=== PATIENT | female | born 1935 | race Caucasian/White ===

== ENCOUNTER 2016-12-21 22:36 | Inpatient (IN) | payer MEDICARE, BC ==
[~2016-12-21 22:36] MED LIST: Heparin 2 UNITS/ML IVPREMIX* 2,000 ML IV ONE; Iohexol 350 (CONTRAST) 200 ML MDV IV ONE; Lidocaine 1% INJ* 10 MG/ML 30 ML SDV ONE; Midazolam* 1 MG/ML 5 ML VIAL (5 MG) ONE; fentaNYL* 50 MCG/ML 2 ML VIAL (100 MCG VIAL) ONE; nitroGLYCERIN DRIP* 250 ML ONE
[2016-12-21] MEDS ORDERED: Heparin DRIP 25,000 UNITS(*) 25,000 UNITS/500 ML BAG ONE (22:44)
[2016-12-21] MEDS ORDERED: VERAPAMIL 2.5 MG/ML 4 ML VIAL ONE (23:04)
[2016-12-21] MEDS ORDERED: Heparin(*) 1000 UNIT/ML 10 ML VIAL CATH LAB IV ONE (23:05)
[2016-12-21 23:10] LABS: Hematocrit 42 % (35-47); Hemoglobin 13.8 g/dl (12.0-16.0); Mean Corpuscular HGB Conc 33 g/dl (31-36); Mean Corpuscular Hemoglobin 32 pg (27-31); Mean Corpuscular Volume 97 fL (80-97); Mean Platelet Volume 9 um3 (7.4-10.4); Red Blood Count 4.33 10^6/ul (4.0-5.4); Red Cell Distribution Width 14 % (10.5-15)
[2016-12-21] MEDS ORDERED: Iodixanol* (CONTRAST) 320 MG/ML 100 ML SDV ONE (23:11)
[2016-12-21 23:22] LABS: Albumin 3.7 g/dL (3.2-5.2); BUN/Creatinine Ratio 25.7 (8-20); Calcium 8.7 mg/dL (8.6-10.3); EGFR Non-African American 50.6 (>60); Globulin 2.6 g/dL (2-4); Potassium 3.9 mmol/L (3.5-5.0); Total Bilirubin 0.6 mg/dL (0.2-1.0); Total Protein 6.3 g/dL (6.4-8.9)
[2016-12-21 23:30] LABS: Troponin I 4.97 ng/mL (<0.04)
[2016-12-22] MEDS ORDERED: NS 0.9% 1000 ML* 1,000 ML IV SCH (00:15)
[2016-12-22] MEDS ORDERED: Metoprolol Tartrate TAB* 25 MG PO SCH (01:00)
--- NOTE | 2016-12-22 01:47 | ED ---
Blas De Leon Rebecca, scribed for Zack Licona MD on 12/21/16 at 2317 . HPI Chest Pain - HPI Summary HPI Summary: Pt is a 81 y/o F BIBA from [place] who presents to ED c/o CP. Pain began today at approximately 1900, initially as pressure then changed into pain. Pain is discrete to the midsternal region without radiation anywhere including the arm, jaw and face. Currently, pain is not present, ranked it as 0/10 though she had a slight "twinge while en route to [facility] ED. No prior similar episodes. Reports she has intermittently experienced palpitations in the past, but no incidences of chest pain previously. Had a colonoscopy this morning. FHx CAD (father pacemaker). NKDA. - History of Current Complaint Chief Complaint: EDChestPainROMI Hx Obtained From: Patient Onset/Duration: Started Hours Ago, Resolved Time of Onset: 19:00 Timing: Intermittent Current Severity: None Pain Intensity: 0 Pain Scale Used: 0-10 Numeric Chest Pain Location: Mid Sternal Character: Pressure/Squeezing Aggravating Factor(s): Nothing Alleviating Factor(s): Nothing Associated Signs and Symptoms: Negative: Fever - Allergy/Home Medications Allergies/Adverse Reactions: Allergies Allergy/AdvReac Type Severity Reaction Status Date / Time No Known Allergies Allergy Verified 12/21/16 23:07 PMH/Surg Hx/FS Hx/Imm Hx Endocrine/Hematology History: Denies: Hx Diabetes Cardiovascular History: Reports: Hx Hypercholesterolemia Denies: Hx Hypertension Musculoskeletal History: Reports: Other Musculoskeletal History - Osteoarthritis (R hand) Infectious Disease History: No Infectious Disease History: Denies: Traveled Outside the [place] in Last 30 Days - Family History Known Family History: Positive: Cardiac Disease - father - pacemaker - Social History Lives: With Family Smoking Status (MU): Never Smoked Tobacco Review of Systems Negative: Fever Positive: Chest Pain All Other Systems Reviewed And Are Negative: Yes Physical Exam - Summary Physical Exam Summary: General: well-appearing, no pain distress Skin: warm, color reflects adequate perfusion, dry Head: normal Eyes: EOMI, MATTHEW ENT: normal Neck: supple, nontender Respiratory: CTA, breath sounds present Cardiovascular: RRR Abdomen: soft, nontender Bowel: present Musculoskeletal: normal, strength/ROM intact Neurological: normal, sensory/motor intact, A&O x3 Psychological: affect/mood appropriate Triage Information Reviewed: Yes Vital Signs On Initial Exam: Initial Vitals Temp Pulse Resp BP Pulse Ox 98 F 72 16 120/72 98 12/21/16 23:01 12/21/16 23:01 12/21/16 23:01 12/21/16 23:01 12/21/16 23:01 Vital Signs Reviewed: Yes Diagnostics - Vital Signs Vital Signs Temp Pulse Resp BP Pulse Ox 12/21/16 23:01 98 F 72 16 120/72 98 - Laboratory Lab Results: Lab Results 12/21/16 Range/Units 22:50 WBC 13.0 H (3.5-10.8) 10^3/ul RBC 4.33 (4.0-5.4) 10^6/ul Hgb 13.8 (12.0-16.0) g/dl Hct 42 (35-47) % MCV 97 (80-97) fL MCH 32 H (27-31) pg MCHC 33 (31-36) g/dl RDW 14 (10.5-15) % Plt Count 205 (150-450) 10^3/ul MPV 9 (7.4-10.4) um3 Neut % (Auto) 74.3 (38-83) % Lymph % (Auto) 17.5 L (25-47) % Williams % (Auto) 7.1 (1-9) % Eos % (Auto) 0.6 (0-6) % Baso % (Auto) 0.5 (0-2) % Absolute Neuts (auto) 9.7 H (1.5-7.7) 10^3/ul Absolute Lymphs (auto) 2.3 (1.0-4.8) 10^3/ul Absolute Monos (auto) 0.9 H (0-0.8) 10^3/ul Absolute Eos (auto) 0.1 (0-0.6) 10^3/ul Absolute Basos (auto) 0.1 (0-0.2) 10^3/ul Absolute Nucleated RBC 0.01 10^3/ul Nucleated RBC % 0.1 Result Diagrams: 12/21/16 22:50 12/21/16 22:50 Lab Statement: Any lab studies that have been ordered have been reviewed, and results considered in the medical decision making process. - EKG 2237 Cardiac Rate: NL - 74 bpm EKG Rhythm: Sinus Rhythm ST Segment: Non-Specific - COncave up ST elevation in the lateral leads Ectopy: None Chest Pain Course/Dx - Course Course Of Treatment: DIAZ SAW PATIENT IN ED AND TOOK HER TO THE [facility]. CRITICAL CARE TIME LESS THAN 30 MINUTES. - Diagnoses Provider Diagnoses: STEMI (ST elevation myocardial infarction) During the Visit The Following Alert/Code Occurred: STEMI - Caled at 2140, prior to pt's arrival - Provider Notifications Discussed Care Of Patient With: Eusebio Jarvis Time Discussed With Above Provider: 23:05 Instructed by Provider To: Other - Discussed pt prior to her arrival. He was in the ED upon her arrival an diwll transport her to the garage laborer. Discharge - Discharge Plan Condition: Good Disposition: ADMITTED TO [facility] documentation as recorded by the Blas pineda Rebecca accurately reflects the service I personally performed and the decisions made by me, Zack Licona MD.
[2016-12-22] MEDS: Acetaminophen TAB* 325 MG PO PRN ×2 (03:29→12:46)
[2016-12-22] MEDS ORDERED: Ondansetron INJ* 2 MG/ML VIAL IV PRN (06:14)
[2016-12-22] MEDS ORDERED: oxyCODONE/Acetamin 5/325 MG* TAB PO PRN (06:14)
[2016-12-22 06:22] LABS: BUN/Creatinine Ratio 28.6 (8-20); Calcium 8.3 mg/dL (8.6-10.3); EGFR Non-African American 72.3 (>60); Potassium 3.8 mmol/L (3.5-5.0)
[2016-12-22 07:17] LABS: Troponin I 2.94 ng/mL (<0.04)
[2016-12-22] MEDS ORDERED: Perflutren Lipid Microsphere* 3 ML VIAL ONE (08:48)
[2016-12-22] MEDS: Aspirin Low Dose CHEW TAB* 81 MG PO SCH (09:25)
[2016-12-22] MEDS: Enoxaparin(*) 40 MG/0.4 ML SYR SUBCUT SCH (09:25)
--- NOTE | 2016-12-22 10:14 | ECHO ---
Patient: FRANSISCO OHARA [facility] Rec#: [id number] : 1935 Date: 12/22/2016 Age: 81y Height: 167.6 cm / 66.0 in Weight: 56.3 kg / 124.1 lbs Sex: F BSA: 1.6 Room#: ICU 3 Admit Date#: 12/22/2016 Type: Inpatient Referring: Eusebio Jarvis MD Reading: Giovanni Nelson DO Dag Coater: Brooklyn Ko RN RDCS Transthoracic Echocardiogram Indication: Takotsubo Cardiomyopathy BP: 106/57 HR: 61 Rhythm: NSR Findings History: HLD, anxiety Technical Comments: The study quality is fair. Completed at 0940. Left Ventricle: The left ventricular chamber size is normal. Mild concentric left ventricular hypertrophy is observed.with a basal septal knuckle There is moderate to severely decreased left ventricular systolic function. There is akinesis of all mid and apical segments. There is hyperkinetic basal segments. Definity was used to better visualize the apex and there was no thrombus visualized. The estimated ejection fraction is 30-35%. There is no consistent Doppler evidence of clinically significant diastolic dysfunction. Left Atrium: The left atrium is slightly dilated. Right Ventricle: The right ventricular chamber size and systolic function are within normal limits. Right Atrium: The right atrial cavity size is normal. Aortic Valve: The aortic valve is trileaflet. The aortic valve leaflets are mildly thickened. There is mild aortic regurgitation. There is no evidence of aortic stenosis. Mitral Valve: The mitral valve leaflets are mildly thickened. There is mild mitral regurgitation. that is non-holosystolic There is no evidence of mitral stenosis. Tricuspid Valve: The tricuspid valve leaflets are normal. There is moderate tricuspid regurgitation. There is evidence of mild to moderate pulmonary hypertension. There is no tricuspid stenosis. Pulmonic Valve: The pulmonic valve structure is not well visualized. There is a trace pulmonic regurgitation. There is no pulmonic stenosis. Pericardium: There is no significant pericardial effusion. Aorta: There is no dilatation of the ascending aorta. The aortic arch is not well visualized. There is no dilation of the aortic root. Pulmonary Artery: The main pulmonary artery is not well visualized. Venous: The inferior vena cava is dilated. There is less than 50% respiratory change in the inferior vena cava dimension. Contrast: Definity was used to optimize study. A total of 3 ml of diluted Definity was administered IV. Conclusions The left ventricular chamber size is normal. Mild concentric left ventricular hypertrophy is observed.with a basal septal knuckle There is moderate to severely decreased left ventricular systolic function LVEF 30% There is akinesis of all mid and apical segments with hyperkinetic basal segments most likely secondary to takotsubo cardiomyopathy (less likely multivessel CAD). There is no hemodynamic significant LVOT gradient or mitral regurgitation. With the use of definity, there is no apical thrombus visualized. The left atrium is slightly dilated. The right ventricular chamber size and systolic function are within normal limits. There is moderate tricuspid regurgitation. There is evidence of mild to moderate pulmonary hypertension. No prior studies available for comparison at time of interpretation. Measurements Name Value Normal Range RVDdMajor (2D) 2.7 cm (2.2 - 4.4) RAd ISD 4CH 4.9 cm (3.4 - 4.9) RA (A4C)W 3.7 cm (2.9 - 4.6) IVSd (2D) 1.1 cm (0.6 - 1) LVPWd (2D) 1.1 cm (0.6 - 1) LVIDd (2D) 3.9 cm (3.6 - 5.4) LVIDs (2D) 2.3 cm - LV FS (2D) 41 % (25 - 45) Aortic Annulus 2 cm (1.4 - 2.6) Ao root diameter (2D) 2.9 cm (2.1 - 3.5) Ascending Ao 2.8 cm (2.1 - 3.4) LA dimension (AP) 2D 3.2 cm (2.3 - 3.8) LAd ISD 4CH 4.8 cm (2.9 - 5.3) LA ISD 4CH W 4.2 cm (2.5 - 4.5) Name Value Normal Range LA ESV SP 4CH (A/L) 60.9 ml - LA ESV SP 2CH (A/L) 49.2 ml - LA ESV BP (A/L) 55.8 ml - LA ESV BP (A/L) index 34.3 ml/m2 - LA ESV SP 4CH (MOD) 57 ml - LA ESV SP 2CH (MOD) 46.4 ml - Name Value Normal Range MV E-wave Vmax 0.77 m/sec - MV deceleration time 163 msec - MV A-wave Vmax 0.77 m/sec - MV E:A ratio 1 ratio - LV septal e' Vmax 0.07 m/sec - LV lateral e' Vmax 0.08 m/sec - LV E:e' septal ratio 11 ratio - LV E:e' lateral ratio 9.6 ratio - Name Value Normal Range AV Vmax 0.98 m/sec - AV VTI 19.9 cm - AV peak gradient 3.8 mmHg - AV mean gradient 2.1 mmHg - LVOT Vmax 0.82 m/sec - LVOT VTI 19.5 cm - LVOT peak gradient 2.7 mmHg - LVOT mean gradient 1.8 mmHg - AR PHT 409 msec - Name Value Normal Range TR Vmax 2.9 m/sec - TR peak gradient 34 mmHg - RAP 15 mmHg - RVSP 49 mmHg - IVC diameter 2.4 cm - Name Value Normal Range PV Vmax 0.5 m/sec -
[2016-12-22] MEDS: Metoprolol Tartrate TAB* 25 MG PO SCH (20:14)
[2016-12-23 06:20] LABS: BUN/Creatinine Ratio 16.3 (8-20); Calcium 8.4 mg/dL (8.6-10.3); EGFR Non-African American 69.2 (>60); Potassium 4.1 mmol/L (3.5-5.0)
[2016-12-23 06:44] LABS: Free T4 0.91 ng/dL (0.61-1.12)
[2016-12-23 06:48] LABS: TSH (Thyroid Stimulating Horm) 3.11 mcIU/mL (0.34-5.60)
[2016-12-23] MEDS: Enoxaparin(*) 40 MG/0.4 ML SYR SUBCUT SCH (08:27)
[2016-12-23] MEDS: Metoprolol Tartrate TAB* 25 MG PO SCH ×2 (08:27→22:04)
[2016-12-23] MEDS: Aspirin Low Dose CHEW TAB* 81 MG PO SCH (08:27)
--- NOTE | 2016-12-23 11:59 | HP ---
CC: Dr. Yu; Dr. Jarvis HISTORY AND PHYSICAL: DATE OF ADMISSION: 12/22/16 PRIMARY: Dr. Yu. HISTORY OF PRESENT ILLNESS: A 81-year-old woman with inferolateral ST-elevation infarct transferred from [place] for further evaluation and management. She has no previous cardiac history. On 12/21/16, she had elective colonoscopy without any polypect lindsay or biopsy. She went home, later that afternoon developed precordial chest discomfort. She pres ented to [place] ER where she had inferolateral J point and ST-segment elevation, her vitals were u nremarkable. Her CBC was notable only for macrocytosis with an MCV of 95.7. BMP included creatinin e of 1.2, she had been fasting for the colonoscopy. Random glucose was 175, BUN 29. She had normal electrolytes. Her CPK was elevated at 411, her troponin was elevated at 1.66, MB elevated at 19.3. She received aspirin, nitroglycerin, and bolus of heparin, IV Lopressor, and was transferred here a fter some delay in obtaining transport. When she arrived in the ER, her chest pain had just resolve d en route, but she still had inferolateral ST elevation and she was brought to the cathode ray tube assembler. She has no history of heart failure symptoms, she is physically active, she has not had heart failur e symptoms, palpitations, or syncope. Per family, she has had some difficulty with memory recently, has not been evaluated by Neurology. She is a retired realtor, she is intelligent, is fairly succe ssful at hiding her memory issues. She also has a benign tremor involving the right hand for which she has been on propranolol 20 mg t.i.d. PAST MEDICAL HISTORY: Tremor, hyperlipidemia, osteoarthritis, remote colectomy with colonoscopy the day of admission which per report showed no abnormality but was limited. PREHOSPITAL MEDICATIONS: 1. Propranolol 20 mg t.i.d. 2. Duloxetine 30 mg daily. SOCIAL HISTORY: She is . She is a retired realtor, she is a nonsmoker. REVIEW OF SYSTEMS: General: No weight loss, no fever. She is very active, she often power walks w ith her without difficulty. Neuro: No history of TIA of CVA, but has been experiencing mem ory difficulty. Pulmonary: No history of hemoptysis or pneumonia. Endocrine: No history of diabe miles. Heme: No history of malignancy or anemia. Circulatory: No claudication. Remainder all nega tive. PHYSICAL EXAMINATION GENERAL: She was comfortable, pain free, articulate. VITAL SIGNS: At arrival here, BP 120/72, pulse 72. HEENT: No xanthelasma, scleral injection, or jaundice. EOMs grossly normal. Cranial nerves grossly intact. NECK: No JVP and carotids normal. No bruits. LUNGS: Her lungs were clear to percussion and auscultation. CARDIAC: Chest wall not tender. RV and apex not palpable. ABDOMEN: Soft, nontender. No bruits. Aorta not palpable. Liver not palpable. No femoral bruits. Normal femoral pulses. EXTREMITIES: Radial and pedal pulses palpable. No cyanosis, clubbing, or edema. SKIN: Warm and perfused. DIAGNOSTIC STUDIES/LAB DATA: White count here 13,000 with normal MCV of 97. BUN 27, creatinine 1. 05. Random blood sugar 186. Lactic acid elevated at 2.4. Troponin was high at 1.97. BNP elevated at 152. Her LDL was 137. Repeat creatinine, on 12/22/16, was 0.77 after hydration. Thyroid studie s pending. EKG, on 12/21/16, at 2237 hours showed inferolateral J point and ST elevation with poor R wave progr ession consistent with inferolateral infarct, although early repolarization is within the differenti al. We had no old EKGs. IMPRESSION AND PLAN: 1. Probable inferolateral ST-elevation infarct based on EKG, abnormal troponin, and history. She u nderwent emergent catheterization. 2. Hyperlipidemia. She will be started on a statin. 3. History of cognitive difficulty. At [place], she had macrocytosis. Thyroid and B12 studies ar e pending. This will be evaluated as an outpatient. 4. Apparently, essential tremor, on propranolol. [id number]/[facility] #: [id number]
[2016-12-23] MEDS: Atorvastatin* 80 MG TAB PO SCH (17:03)
[2016-12-23] MEDS: Enoxaparin(*) 60 MG/0.6 ML SYR SUBCUT SCH (22:04)
[2016-12-24] MEDS: Enoxaparin(*) 60 MG/0.6 ML SYR SUBCUT SCH ×2 (08:09→20:40)
[2016-12-24] MEDS: Aspirin Low Dose CHEW TAB* 81 MG PO SCH (08:09)
[2016-12-24] MEDS: Metoprolol Tartrate TAB* 25 MG PO SCH ×2 (08:09→20:40)
[2016-12-24] MEDS: Lisinopril TAB* 5 MG PO SCH (11:56)
[2016-12-24] MEDS: Atorvastatin* 80 MG TAB PO SCH (16:53)
[2016-12-25 07:38] VITALS: BP 102/57
[2016-12-25] MEDS: Lisinopril TAB* 5 MG PO SCH (08:22)
[2016-12-25] MEDS: Aspirin Low Dose CHEW TAB* 81 MG PO SCH (08:22)
[2016-12-25] MEDS: Enoxaparin(*) 60 MG/0.6 ML SYR SUBCUT SCH (08:22)
[2016-12-25] MEDS ORDERED: Metoprolol Succinate XL TAB* 50 MG PO SCH (09:00)
--- NOTE | 2016-12-26 04:51 | DS ---
CC: Dr. Yu * DISCHARGE SUMMARY: DATE OF ADMISSION: 12/21/16 DATE OF DISCHARGE: 12/25/16 PRIMARY CARE PHYSICIAN: Dr. Yu. DISCHARGE DIAGNOSES: 1. Takotsubo syndrome. 2. Hypertension. 3. Hyperlipidemia. 4. Dementia. 5. Osteoarthritis. 6. Benign tremor. CONDITION ON DISCHARGE: Stable. PROCEDURES: Cardiac cath 12/21/16 Dr. Jarvis, right radial access telemetry, echocardiogram. DISCHARGE MEDICATIONS: 1. Aspirin 81 mg daily. 2. Lipitor 80 mg daily. 3. Lisinopril 5 mg daily. 4. Toprol-XL 50 mg daily. 5. Cymbalta 30 mg daily as before. FOLLOWUP: 1. Follow up with ma tomorrow for wound check in [facility] at 2 p.m. 2. Follow up with Dr. Cai, Neurology, 01/09/17 at [facility] at [address] Yu as before. ACTIVITY: No strenuous exertion, normal household activity okay. WOUND CARE: Shower only, for 2 days. HISTORY: See H and P. LABORATORY DATA/DIAGNOSTIC STUDIES: Admission CBC notable only for white count of 13,000. BMP post cath stable creatinine 0.8. Her troponin peaked at 4.97 on admission with subsequent decrease. B12 level 1111, normal TSH and free T4 at 3.11 and 0.91, respectively. Her random sugars were slightly elevated with a normal hemoglobin A1c. Calcium was low at 8.3 and 8.4. EKG initially showed inferolateral ST elevation with subsequent development of inferolateral T-wave inversion consistent with post infarct evolution. Echocardiogram 12/22/16 showed EF 30% to 35% with hyperkinetic basal segments and anteroapical and inferoapical wall motion abnormality. HOSPITAL COURSE: She was transferred from [place] with an inferolateral ST elevation infarct, underwent catheterization via the radial approach without complications was found to have no obstructive coronary disease. LV gram showed typical takotsubo wall motion abnormality. There were no complications at the cath site. BMP remained stable. She tolerated increasing doses of beta blockade as well as low dose lisinopril, blood pressures have been in the 100s. She has very minimal orthostatic lightheadedness. She is also on a statin because of an elevated LDL. She was anticoagulated with Lovenox in the hospital , will continue with aspirin. Echo confirmed the wall motion abnormality. The plan is for continued outpatient followup with a repeat echo during convalescence. Another issue is fairly longstanding memory deficit with short-term memory loss. I will arrange for her to see Dr. Cai in outpatient consultation later this month. Thyroid studies and B12 levels were normal. On the day of discharge of vitals are stable. She is fully ambulatory, has a normal exam. There are no complications at the right radial access site. [id number]/[facility] #: [id number] [place]
== END 2016-12-25 12:20 | disposition home or self-care (01) | DRG 281 ==
LOC: ED 22:36 → CHICATH 23:07 → ICU 12-22 00:06 → MEDTELE 12-23 11:35
PROVIDERS: ADMIT Internal Medicine Cardiovascular Disease; ATTEND Internal Medicine Cardiovascular Disease
PROC: 4A023N7 Measurement of Cardiac Sampling and Pressure, Left Heart, Percutaneous Approach (ICD-10-PCS; 2016-12-21)
PROC: B2151ZZ Fluoroscopy of Left Heart using Low Osmolar Contrast (ICD-10-PCS; 2016-12-21)
PROC: B2111ZZ Fluoroscopy of Multiple Coronary Arteries using Low Osmolar Contrast (ICD-10-PCS; principal; 2016-12-21 23:15)
DX: I21.19 ST elevation (STEMI) myocardial infarction involving other coronary artery of inferior wall (principal); I51.81 Takotsubo syndrome; F03.90 Unspecified dementia, unspecified severity, without behavioral disturbance, psychotic disturbance, mood disturbance, and anxiety; E78.5 Hyperlipidemia, unspecified; M19.041 Primary osteoarthritis, right hand; G25.0 Essential tremor; Z79.82 Long term (current) use of aspirin; Z82.49 Family history of ischemic heart disease and other diseases of the circulatory system
CPT/HCPCS: 36415; 80048; 80053; 82550; 82553; 82607; 83036; 83605; 83721; 83880; 84439; 84443; 84484; 85025; 85610; 85730; 87641; 93005; 93306; 99156; 99157; A9270-GY; C8929; J1644; J1650; J2001; J2250; J3010